=== PATIENT | female | born 1950 | race African-American/Black ===

== ENCOUNTER → 2016-11-27 | Outpatient (CLI) | payer MEDICARE, MEDICAID ==
[~2016-11-27] MED LIST: BARIUM SULFATE 450ML ORAL SUSP ONE; GABAPENTIN; UNKNOWN B/P MED
== END | disposition home or self-care (01) ==
LOC: CT 08:39
PROVIDERS: ATTEND Internal Medicine Gastroenterology
DX: N20.0 Calculus of kidney (principal); D25.9 Leiomyoma of uterus, unspecified; R91.1 Solitary pulmonary nodule; R06.02 Shortness of breath
CPT/HCPCS: 71250; 74176

== ENCOUNTER → 2017-07-01 | Outpatient (CLI) | payer MEDICARE, MEDICAID ==
[~2017-07-01] MED LIST changes: -BARIUM SULFATE 450ML ORAL SUSP ONE; +IOHEXOL-300 100 ML BOTTLE ONE
== END | disposition home or self-care (01) ==
LOC: MRI 11:46
PROVIDERS: ATTEND Internal Medicine Gastroenterology
DX: K85.90 Acute pancreatitis without necrosis or infection, unspecified (principal); R18.8 Other ascites; J47.9 Bronchiectasis, uncomplicated; N20.0 Calculus of kidney
CPT/HCPCS: 71260; 74181; 76376; Q9967

== ENCOUNTER 2018-04-18 03:55 | Inpatient (IN) | payer MEDICARE, MEDICAID ==
[~2018-04-18] VITALS: Ht 154.9 cm; Wt 65.9 kg
[2018-04-18] VITALS (10 sets, daily range): BP systolic 110–162; BP diastolic 61–83
[~2018-04-18 03:55] MED LIST changes: -IOHEXOL-300 100 ML BOTTLE ONE
[2018-04-18 05:58] LABS: HEMATOCRIT. 21.4 % (36.0-48.0); HEMOGLOBIN. 7.1 g/dL (12.0-16.0); MEAN CORPUSCULAR HEMOGLOBIN 37.8 pg (28.0-32.0); MEAN CORPUSCULAR VOLUME 113.8 fL (81.0-99.0); MEAN PLATELET VOLUME 8.5 fl (7.4-10.4); RED BLOOD CELL COUNT 1.88 mill/uL (4.2-5.4); RED CELL DISTRIBUTION WIDTH 19.5 % (11.6-14.6)
[2018-04-18] MEDS ORDERED: DIPHENHYDRAMINE 25MG CAPSULE PO ONE (06:00)
[2018-04-18 06:02] LABS: CHLORIDE 118 mEq/L (98-107)
[2018-04-18 06:03] LABS: PROTHROMBIN TIME 19.5 sec (9.1-11.1)
[2018-04-18] MEDS ORDERED: LORAZEPAM 1MG TABLET PO ONE (07:00)
[2018-04-18 09:23] LABS: NUCLEATED RED BLOOD CELLS 1 /100 WBC; PLATELET ESTIMATE MARKEDLY DECREASED
[2018-04-18 09:25] LABS: PLATELET 42 x1000/uL (130-400)
[2018-04-18] MEDS ORDERED: LORAZEPAM 2MG/ML CPJ IV PRN (10:00)
[2018-04-18] MEDS ORDERED: ONDANSETRON HCL 4MG/2ML INJ IV PRN (10:00)
[2018-04-18] MEDS ORDERED: MAGNESIUM/ALUMINUM HYDROXIDE/SIMETHICONE 30ML UDC PO PRN (10:00)
[2018-04-18] MEDS ORDERED: CLONIDINE 0.1MG TABLET PO PRN (10:00)
[2018-04-18] MEDS ORDERED: GUAIFENESIN 200MG/10ML SUGAR FREE UDC PO PRN (10:00)
[2018-04-18] MEDS ORDERED: DOCUSATE SODIUM 100MG CAPSULE PO PRN (10:00)
[2018-04-18] MEDS ORDERED: IPRATROPIUM/ALBUTEROL 0.5-3(2.5)MG/3ML NEB INH PRN (10:00)
[2018-04-18] MEDS ORDERED: HYDROCODONE/ACETAMINOPHEN 5/325MG TABLET PO PRN (10:00)
[2018-04-18] MEDS ORDERED: DIPHENHYDRAMINE 50MG/ML VIAL IV PRN (10:00)
[2018-04-18] MEDS ORDERED: NA PHOS,M-B/NA PHOS,DI-BA ENEMA 118ML PR PRN (10:00)
[2018-04-18] MEDS ORDERED: ACETAMINOPHEN 325MG TABLET PO PRN (10:00)
[2018-04-18] MEDS ORDERED: MORPHINE SULFATE 4 MG/ML CPJ (NOT FOR IM USE) IV PRN (10:15)
[2018-04-18] MEDS ORDERED: POTASSIUM CHLORIDE 20MEQ TABLET SR PO NR (11:45)
[2018-04-18] MEDS ORDERED: FURO40TA5 PO (13:16)
[2018-04-18] MEDS: CITRIC ACID/SODIUM CITRATE SOLN 30ML UDC PO SCH (18:03)
[2018-04-18 21:49] LABS: HEMATOCRIT 20.8 % (36.0-48.0); HEMOGLOBIN 6.7 g/dL (12.0-16.0)
[2018-04-19] VITALS (12 sets, daily range): BP systolic 119–186; BP diastolic 60–80
[2018-04-19 05:50] LABS: CHLORIDE 121 mEq/L (98-107)
[2018-04-19 05:52] LABS: INR 1.7; PROTHROMBIN TIME 17.1 sec (9.1-11.1)
[2018-04-19 05:59] LABS: LDL CHOLESTEROL 41 mg/dL (5-100)
[2018-04-19 06:00] LABS: HDL CHOLESTEROL 12 mg/dL (40-59)
[2018-04-19 06:12] LABS: BASOPHILS % 0.3 % (0.0-2.0); EOSINOPHILS % 0.8 % (0.0-5.0); HEMATOCRIT. 23.8 % (36.0-48.0); HEMOGLOBIN. 7.4 g/dL (12.0-16.0); MEAN CORPUSCULAR HEMOGLOBIN 38.6 pg (28.0-32.0); MEAN CORPUSCULAR VOLUME 124.4 fL (81.0-99.0); MEAN PLATELET VOLUME 9.1 fl (7.4-10.4); MONOCYTES % 9.8 % (2.0-8.0); NEUTROPHILS % 66.1 % (40.0-76.0); PLATELET 67 x1000/uL (130-400); RED BLOOD CELL COUNT 1.91 mill/uL (4.2-5.4)
[2018-04-19] MEDS: CITRIC ACID/SODIUM CITRATE SOLN 30ML UDC PO SCH (10:16)
[2018-04-19 11:19] LABS: HEMATOCRIT 27.5 % (36.0-48.0)
[2018-04-19 11:22] LABS: INR 1.6; PROTHROMBIN TIME 16.1 sec (9.1-11.1)
[2018-04-19] MEDS: SODIUM BICARBONATE 100 MEQ in DEXTROSE 5% WATER 900 ML IV SCH (11:30)
[2018-04-19] MEDS ORDERED: LIDOCAINE HCL/EPINEPHRINE 1%-EPI 1:100,000 20 ML VIAL ONE (11:59)
[2018-04-19] MEDS ORDERED: SODIUM BICARBONATE 4% (2.4MEQ) 5ML VIAL IV ONE (12:00)
[2018-04-19 14:44] LABS: BG BASE EXCESS -9.1 mmol/L (-2.0-2.0); BG CARBOXYHEMOGLOBIN 0.9 % (0.5-1.5); BG DEOXYHEMOGLOBIN 2.8 % (0.0-5.0); BG FRACTION INSPIRED OXYGEN 21; BG HCO3 ACT 14.2 mmol/L (22.0-26.0); BG METHEMOGLOBIN 0.4 % (0.0-1.5); BG OXYGEN SATURATION 97.2 % (92.0-98.5); BG OXYHEMOGLOBIN 95.9 % (94.0-97.0); BG PCO2 22.8 mmHg (35.0-45.0); BG PH 7.411 (7.350-7.450); BG PO2 100.1 mmHg (75.0-100.0); BG SAMPLE SITE LEFT BRACHIAL; BG VENT MODE ROOM AIR
[2018-04-20] VITALS: BP 168/85
[2018-04-20] MEDS: SODIUM BICARBONATE 100 MEQ in DEXTROSE 5% WATER 900 ML IV SCH (00:20)
[2018-04-20 04:00] VITALS: BP 155/67
[2018-04-20 16:00] VITALS: BP 175/79
[2018-04-20 16:50] VITALS: BP 175/79
== END 2018-04-20 20:20 | disposition home or self-care (01) | DRG 438 ==
LOC: ER 03:55 → 6EST 05:45 → EDBEDREQ 05:48 → ENRESERV 08:22
PROVIDERS: ADMIT Internal Medicine; ATTEND Internal Medicine
PROC: 30233R1 Transfusion of Nonautologous Platelets into Peripheral Vein, Percutaneous Approach (ICD-10-PCS; principal; 2018-04-18)
PROC: 30233N1 Transfusion of Nonautologous Red Blood Cells into Peripheral Vein, Percutaneous Approach (ICD-10-PCS; 2018-04-19)
PROC: 0W9G3ZZ Drainage of Peritoneal Cavity, Percutaneous Approach (ICD-10-PCS; 2018-04-19)
DX: K85.90 Acute pancreatitis without necrosis or infection, unspecified (principal); N17.0 Acute kidney failure with tubular necrosis; R18.8 Other ascites; E87.2 Acidosis; D68.9 Coagulation defect, unspecified; D64.9 Anemia, unspecified; E87.6 Hypokalemia; N18.9 Chronic kidney disease, unspecified; I12.9 Hypertensive chronic kidney disease with stage 1 through stage 4 chronic kidney disease, or unspecified chronic kidney disease; E87.70 Fluid overload, unspecified; D69.6 Thrombocytopenia, unspecified; B19.20 Unspecified viral hepatitis C without hepatic coma; F17.200 Nicotine dependence, unspecified, uncomplicated; Z88.0 Allergy status to penicillin
CPT/HCPCS: 36415; 36430; 36600; 49083; 71045; 73630; 76770; 80048; 80061; 82375; 82805; 83036; 83605; 83735; 83880; 84100; 84484; 85014; 85018; 85049; 85384; 86850; 86900; 86920; 93005; 93970; 96374; 99285; J2060; J2270; J3490; J7040; J7070; P9016; P9034; Q0163

== ENCOUNTER 2018-06-05 08:10 | Inpatient (IN) | payer MEDICARE, MEDICAID ==
[~2018-06-05] VITALS: Ht 162.6 cm; Wt 78.2 kg
[~2018-06-05 08:10] MED LIST changes: +FURO40TA5 PO
[2018-06-05] MEDS ORDERED: DEXTROSE 50% WATER 50ML SYRINGE IV ONE ×2 (08:30→10:15)
[2018-06-05] MEDS ORDERED: SODIUM CHLORIDE 0.9% 1000ML BAG (SEPSIS BOLUS) IV ONE (08:30)
[2018-06-05] MEDS ORDERED: MIDAZOLAM HCL 50 MG in DEXTROSE 5% WATER 40 ML IV ONE ×2 (08:30→13:30)
[2018-06-05] MEDS ORDERED: NALOXONE HCL 0.4 MG/ML 1ML VIAL IV PRN (08:30)
[2018-06-05] MEDS ORDERED: MEROPENEM 1,000 MG in SODIUM CHLORIDE 0.9% 100 ML IV SCH (08:30)
[2018-06-05] MEDS ORDERED: ETOMIDATE 2MG/ML 10ML VIAL IV ONE (08:30)
[2018-06-05 08:46] LABS: BG HCO3 ACT 4.3 mmol/L (22.0-26.0); BG PCO2 25.9 mmHg (35.0-45.0); BG PH 6.837 (7.350-7.450); BG PO2 589.3 mmHg (75.0-100.0); BG SAMPLE SITE RIGHT BRACHIAL; BG TIDAL VOLUME(mL) 500 mL; BG TOTAL HEMOGLOBIN < 4.5 g/dL (12.0-18.0); BG VENT MODE VENT - A/C; BG VENT RATE 14 set
[2018-06-05 08:46] LABS: BASOPHILS % 0.5 % (0.0-2.0); EOSINOPHILS % 0.8 % (0.0-5.0); LYMPHOCYTES % 19.4 % (20.0-50.0); MEAN CORPUSCULAR HEMOGLOBIN 37.8 pg (28.0-32.0); MEAN CORPUSCULAR VOLUME 129.7 fL (81.0-99.0); MONOCYTES % 7.7 % (2.0-8.0); NEUTROPHILS % 71.6 % (40.0-76.0); RED BLOOD CELL COUNT 0.87 mill/uL (4.2-5.4); RED CELL DISTRIBUTION WIDTH 18.2 % (11.6-14.6)
[2018-06-05 08:53] LABS: HEMOGLOBIN. 3.3 g/dL (12.0-16.0)
[2018-06-05 08:55] LABS: HEMATOCRIT. 11.3 % (36.0-48.0); PLATELET 47 x1000/uL (130-400)
[2018-06-05] MEDS ORDERED: SODIUM BICARBONATE 8.4% 1 MEQ/ML 50ML SYR IV ONE ×4 (09:00→13:30)
[2018-06-05 09:05] LABS: ETHANOL BLOOD < 10 mg/dL
[2018-06-05 09:11] LABS: PLATELET ESTIMATE MARKEDLY DECREASED
[2018-06-05 09:16] LABS: CHLORIDE 112 mEq/L (98-107)
[2018-06-05 09:28] LABS: PROTHROMBIN TIME 41.6 sec (9.1-11.1)
[2018-06-05 09:53] LABS: INR 4.2
[2018-06-05] MEDS ORDERED: SODIUM BICARBONATE 8.4% 1 MEQ/ML 50ML SYR IV NR (10:00)
[2018-06-05] MEDS ORDERED: DEXT 5%/0.45% NACL 1000ML 1,000 ML IV SCH (10:01)
[2018-06-05 10:02] LABS: CREATINE KINASE 687 IU/L (26-192)
[2018-06-05] MEDS ORDERED: OCTREOTIDE 1,000 MCG in SODIUM CHLORIDE 0.9% 100 ML IV ONE (10:15)
[2018-06-05] MEDS ORDERED: VECURONIUM BROMIDE 10 MG/VIAL IV ONE (10:15)
[2018-06-05] MEDS ORDERED: SUCCINYLCHOLINE CHLORIDE 200MG/10ML IV ONE (10:15)
[2018-06-05] MEDS ORDERED: IPRATROPIUM/ALBUTEROL 0.5-3(2.5)MG/3ML NEB INH PRN (10:15)
[2018-06-05] MEDS ORDERED: ONDANSETRON HCL 4MG/2ML INJ IV PRN (10:15)
[2018-06-05] MEDS ORDERED: LEVOFLOXACIN 500MG PREMIX 100 ML IV SCH (10:15)
[2018-06-05] MEDS: IPRATROPIUM/ALBUTEROL 0.5-3(2.5)MG/3ML NEB HHN SCH ×3 (10:15→20:55)
[2018-06-05] MEDS ORDERED: PANTOPRAZOLE 80 MG in SODIUM CHLORIDE 0.9% 100 ML IV SCH (10:15)
[2018-06-05] MEDS ORDERED: ACETAMINOPHEN 650MG SUPP PR PRN (10:15)
[2018-06-05] MEDS ORDERED: OCTREOTIDE ACETATE 50 MCG/ML 1ML IV NR (10:30)
[2018-06-05] MEDS ORDERED: METRONIDAZOLE 500 MG PREMIX 100 ML IV NR (11:30)
[2018-06-05] MEDS ORDERED: OCTREOTIDE 1,000 MCG in SODIUM CHLORIDE 0.9% 98 ML IV SCH (11:30)
[2018-06-05] MEDS ORDERED: LEVOFLOXACIN 500MG PREMIX 100 ML IV NR (11:30)
[2018-06-05 11:31] LABS: CLARITY URINE CLOUDY (CLEAR); COLOR URINE DARK YELLOW (YELLOW); KETONES URINE NEGATIVE (NEGATIVE); LEUKOCYTE ESTERASE URINE NEGATIVE (NEGATIVE); NITRITE URINE NEGATIVE (NEGATIVE); OCCULT BLOOD URINE 3+ (NEGATIVE); PROTEIN URINE 1+ (NEGATIVE); SPECIFIC GRAVITY URINE 1.013 (1.005-1.030)
[2018-06-05] MEDS ORDERED: NOREPINEPHRINE 32 MG in DEXT 5% WATER 468 ML IV PRN ×2 (11:45→13:15)
[2018-06-05] MEDS ORDERED: SODIUM BICARBONATE 150 MEQ in SODIUM CHLORIDE 0.45% 1,000 ML IV SCH (12:00)
[2018-06-05] MEDS ORDERED: PHYTONADIONE 10 MG in DEXTROSE 5% WATER 50 ML IV NR (12:00)
[2018-06-05] MEDS: OCTREOTIDE 1,000 MCG in SODIUM CHLORIDE 0.9% 98 ML IV SCH (12:00)
[2018-06-05] MEDS ORDERED: VANCOMYCIN 1250MG in DEXTROSE 5% WATER 250ML IV SCH (12:00)
[2018-06-05 12:33] LABS: BG BASE EXCESS -23.9 mmol/L (-2.0-2.0); BG CARBOXYHEMOGLOBIN 0.6 % (0.5-1.5); BG DEOXYHEMOGLOBIN 4.3 % (0.0-5.0); BG FRACTION INSPIRED OXYGEN 40; BG HCO3 ACT 4.6 mmol/L (22.0-26.0); BG METHEMOGLOBIN 0.3 % (0.0-1.5); BG OXYGEN SATURATION 95.7 % (92.0-98.5); BG OXYHEMOGLOBIN 94.8 % (94.0-97.0); BG PCO2 16.9 mmHg (35.0-45.0); BG PH 7.056 (7.350-7.450); BG SAMPLE SITE RIGHT BRACHIAL; BG TIDAL VOLUME(mL) 500 mL; BG VENT MODE VENT - A/C; BG VENT RATE 26 set
[2018-06-05 12:53] LABS: *BENZODIAZEPINES SCREEN URINE NEGATIVE (NEGATIVE); *COCAINE SCREEN URINE NEGATIVE (NEGATIVE); METHADONE URINE SCREEN NEGATIVE (NEGATIVE); OPIATES URINE SCREEN NEGATIVE (NEGATIVE)
[2018-06-05 12:54] LABS: *AMPHETAMINES SCREEN URINE NEGATIVE (NEGATIVE); *BARBITURATES SCREEN URINE NEGATIVE (NEGATIVE); CANNABINOID URINE SCREEN NEGATIVE (NEGATIVE); PHENCYCLIDINE URINE SCREEN NEGATIVE (NEGATIVE)
[2018-06-05 12:59] LABS: BASOPHILS % 0.9 % (0.0-2.0); EOSINOPHILS % 0.9 % (0.0-5.0); HEMATOCRIT. 25.9 % (36.0-48.0); HEMOGLOBIN. 8.7 g/dL (12.0-16.0); MEAN CORPUSCULAR HEMOGLOBIN 30.7 pg (28.0-32.0); MEAN CORPUSCULAR VOLUME 91.5 fL (81.0-99.0); MEAN PLATELET VOLUME 7.8 fl (7.4-10.4); MONOCYTES % 8.3 % (2.0-8.0); NEUTROPHILS % 56.9 % (40.0-76.0); RED BLOOD CELL COUNT 2.83 mill/uL (4.2-5.4); RED CELL DISTRIBUTION WIDTH 14.4 % (11.6-14.6)
[2018-06-05 13:05] LABS: CHLORIDE 110 mEq/L (98-107)
[2018-06-05] MEDS ORDERED: HEPARIN 1000 UNITS/ML 10ML ONE (13:16)
[2018-06-05] MEDS ORDERED: LIDOCAINE HCL 1% 20ML VIAL (Pyxis) INJ ONE (13:16)
[2018-06-05] MEDS ORDERED: SODIUM BICARBONATE 4% (2.4MEQ) 5ML VIAL IV ONE (13:16)
[2018-06-05 13:18] LABS: D-DIMER 16.77 mg/L FEU (<0.50)
[2018-06-05 13:27] LABS: PLATELET 14 x1000/uL (130-400)
[2018-06-05] MEDS: PANTOPRAZOLE SODIUM 40 MG/VIAL IV SCH (13:45)
[2018-06-05] MEDS ORDERED: METRONIDAZOLE 500 MG PREMIX 100 ML IV SCH (14:00)
[2018-06-05 19:05] LABS: HEMATOCRIT 30.1 % (36.0-48.0); HEMOGLOBIN 9.7 g/dL (12.0-16.0)
[2018-06-06] VITALS (104 sets, daily range): BP systolic 45–151; BP diastolic 26–99
[2018-06-06] MEDS: IPRATROPIUM/ALBUTEROL 0.5-3(2.5)MG/3ML NEB HHN SCH ×6 (00:52→21:12)
[2018-06-06] MEDS ORDERED: NOREPINEPHRINE 32 MG in DEXT 5% WATER 468 ML IV PRN ×2 (01:00→18:15)
[2018-06-06] MEDS: PANTOPRAZOLE SODIUM 40 MG/VIAL IV SCH ×3 (01:26→21:22)
[2018-06-06] MEDS: SODIUM BICARBONATE 150 MEQ in DEXTROSE 5% WATER 1,000 ML IV SCH ×2 (01:26→16:52)
[2018-06-06] MEDS: METRONIDAZOLE 500 MG PREMIX 100 ML IV SCH ×3 (02:10→16:57)
[2018-06-06 02:26] LABS: BG BASE EXCESS -19.8 mmol/L (-2.0-2.0); BG CARBOXYHEMOGLOBIN 0.6 % (0.5-1.5); BG DEOXYHEMOGLOBIN 6.6 % (0.0-5.0); BG FRACTION INSPIRED OXYGEN 40; BG HCO3 ACT 6.6 mmol/L (22.0-26.0); BG OXYGEN SATURATION 93.3 % (92.0-98.5); BG OXYHEMOGLOBIN 91.8 % (94.0-97.0); BG PCO2 17.7 mmHg (35.0-45.0); BG PH 7.189 (7.350-7.450); BG PO2 90.4 mmHg (75.0-100.0); BG SAMPLE SITE RIGHT BRACHIAL; BG TIDAL VOLUME(mL) 500 mL; BG TOTAL HEMOGLOBIN 5.3 g/dL (12.0-18.0); BG VENT MODE VENT - A/C; BG VENT RATE 30 set
[2018-06-06] MEDS ORDERED: SODIUM BICARBONATE 8.4% 1 MEQ/ML 50ML SYR IV SCH (04:00)
[2018-06-06 04:10] LABS: HEMATOCRIT 16.2 % (36.0-48.0); HEMOGLOBIN 5.2 g/dL (12.0-16.0)
[2018-06-06] MEDS: PHENYLEPHRINE 40 MG in DEXT 5% WATER 246 ML IV PRN ×2 (06:31→21:06)
[2018-06-06] MEDS: VASOPRESSIN 10 UNIT in SODIUM CHLORIDE 0.9% 99.5 ML IV PRN ×3 (06:34→16:51)
[2018-06-06 09:19] LABS: BG BASE EXCESS -21.2 mmol/L (-2.0-2.0); BG CARBOXYHEMOGLOBIN 0.9 % (0.5-1.5); BG DEOXYHEMOGLOBIN 3.5 % (0.0-5.0); BG FRACTION INSPIRED OXYGEN 80; BG METHEMOGLOBIN 0.5 % (0.0-1.5); BG OXYGEN SATURATION 96.5 % (92.0-98.5); BG OXYHEMOGLOBIN 95.1 % (94.0-97.0); BG PCO2 24.1 mmHg (35.0-45.0); BG PH 7.079 (7.350-7.450); BG PO2 119.7 mmHg (75.0-100.0); BG SAMPLE SITE RIGHT BRACHIAL; BG TIDAL VOLUME(mL) 500 mL; BG TOTAL HEMOGLOBIN 7.3 g/dL (12.0-18.0); BG VENT MODE VENT - A/C; BG VENT RATE 26 set
[2018-06-06 09:52] LABS: CHLORIDE 107 mEq/L (98-107)
[2018-06-06] MEDS ORDERED: OCTREOTIDE 1,000 MCG in SODIUM CHLORIDE 0.9% 98 ML IV SCH (10:00)
[2018-06-06 10:27] LABS: MEAN PLATELET VOLUME 7.6 fl (7.4-10.4); PLATELET 195 x1000/uL (130-400); RED BLOOD CELL COUNT 2.22 mill/uL (4.2-5.4); RED CELL DISTRIBUTION WIDTH 14.9 % (11.6-14.6)
[2018-06-06 10:29] LABS: PHOSPHORUS 8.9 mg/dL (2.5-4.9)
[2018-06-06 11:03] LABS: HEMOGLOBIN. 6.9 g/dL (12.0-16.0)
[2018-06-06] MEDS ORDERED: SODIUM BICARBONATE 8.4% 1 MEQ/ML 50ML SYR IV NR (11:30)
[2018-06-06 14:37] LABS: HEMATOCRIT 25.8 % (36.0-48.0); HEMOGLOBIN 8.5 g/dL (12.0-16.0)
[2018-06-06 15:19] LABS: NUCLEATED RED BLOOD CELLS 12 /100 WBC; PLATELET ESTIMATE NORMAL
[2018-06-06 20:49] LABS: HEMATOCRIT 25.3 % (36.0-48.0); HEMOGLOBIN 8.2 g/dL (12.0-16.0)
[2018-06-07] VITALS (45 sets, daily range): BP systolic 88–112; BP diastolic 37–81
[2018-06-07] MEDS: OCTREOTIDE 1,000 MCG in SODIUM CHLORIDE 0.9% 98 ML IV SCH (00:08)
[2018-06-07] MEDS: METRONIDAZOLE 500 MG PREMIX 100 ML IV SCH ×2 (00:48→09:25)
[2018-06-07] MEDS: VASOPRESSIN 10 UNIT in SODIUM CHLORIDE 0.9% 99.5 ML IV PRN ×3 (00:50→13:24)
[2018-06-07] MEDS: IPRATROPIUM/ALBUTEROL 0.5-3(2.5)MG/3ML NEB HHN SCH ×4 (01:21→11:56)
[2018-06-07] MEDS: SODIUM BICARBONATE 150 MEQ in DEXTROSE 5% WATER 1,000 ML IV SCH (03:42)
[2018-06-07 05:16] LABS: HEMATOCRIT. 30.2 % (36.0-48.0); HEMOGLOBIN. 8.8 g/dL (12.0-16.0); MEAN CORPUSCULAR HEMOGLOBIN 30.8 pg (28.0-32.0); MEAN CORPUSCULAR VOLUME 105.8 fL (81.0-99.0); MEAN PLATELET VOLUME 8.9 fl (7.4-10.4); PLATELET 96 x1000/uL (130-400); RED BLOOD CELL COUNT 2.85 mill/uL (4.2-5.4)
[2018-06-07 05:53] LABS: PHOSPHORUS 11.4 mg/dL (2.5-4.9)
[2018-06-07 07:14] LABS: NUCLEATED RED BLOOD CELLS 13 /100 WBC
[2018-06-07 07:17] LABS: PLATELET ESTIMATE DECREASED
[2018-06-07 08:59] LABS: BG BASE EXCESS -22.4 mmol/L (-2.0-2.0); BG CARBOXYHEMOGLOBIN 0.6 % (0.5-1.5); BG DEOXYHEMOGLOBIN 22.8 % (0.0-5.0); BG FRACTION INSPIRED OXYGEN 100; BG HCO3 ACT 7.9 mmol/L (22.0-26.0); BG METHEMOGLOBIN 0.4 % (0.0-1.5); BG OXYHEMOGLOBIN 76.2 % (94.0-97.0); BG PCO2 35.4 mmHg (35.0-45.0); BG PH 6.964 (7.350-7.450); BG PO2 52.9 mmHg (75.0-100.0); BG SAMPLE SITE RIGHT BRACHIAL; BG TIDAL VOLUME(mL) 500 mL; BG TOTAL HEMOGLOBIN 7.5 g/dL (12.0-18.0); BG VENT MODE VENT - A/C; BG VENT RATE 26 set
[2018-06-07] MEDS: PANTOPRAZOLE SODIUM 40 MG/VIAL IV SCH (09:24)
[2018-06-07] MEDS ORDERED: LEVOFLOXACIN 250MG PREMIX 50 ML IV SCH (12:00)
[2018-06-07] MEDS ORDERED: VANCOMYCIN 1 G PREMIX 200 ML IV NR (12:00)
[2018-06-07] MEDS ORDERED: PETROLATUM,WHITE OPHTH OINT 3.5GM BOTHEYE SCH (14:00)
[2018-06-07] MEDS ORDERED: LACTULOSE 20G/30ML UDC PO SCH (16:00)
== END 2018-06-07 14:28 | disposition expired | DRG 871 ==
LOC: ER 08:10 → CVICU 08:30 → EDBEDREQ 08:31 → SUPCPDRO 09:59 → ENRESERV 23:10
PROVIDERS: ADMIT Internal Medicine; ATTEND Internal Medicine
PROC: 30233K1 Transfusion of Nonautologous Frozen Plasma into Peripheral Vein, Percutaneous Approach (ICD-10-PCS; principal; 2018-06-05)
PROC: 30233N1 Transfusion of Nonautologous Red Blood Cells into Peripheral Vein, Percutaneous Approach (ICD-10-PCS; 2018-06-05)
PROC: 30233R1 Transfusion of Nonautologous Platelets into Peripheral Vein, Percutaneous Approach (ICD-10-PCS; 2018-06-05)
PROC: 0BH17EZ Insertion of Endotracheal Airway into Trachea, Via Natural or Artificial Opening (ICD-10-PCS; 2018-06-05)
PROC: 5A1945Z Respiratory Ventilation, 24-96 Consecutive Hours (ICD-10-PCS; 2018-06-05)
PROC: 05HY33Z Insertion of Infusion Device into Upper Vein, Percutaneous Approach (ICD-10-PCS; 2018-06-05)
DX: A41.9 Sepsis, unspecified organism (principal); E43 Unspecified severe protein-calorie malnutrition; G93.41 Metabolic encephalopathy; J96.00 Acute respiratory failure, unspecified whether with hypoxia or hypercapnia; K72.00 Acute and subacute hepatic failure without coma; R65.21 Severe sepsis with septic shock; N17.0 Acute kidney failure with tubular necrosis; I85.11 Secondary esophageal varices with bleeding; J69.0 Pneumonitis due to inhalation of food and vomit; D61.818 Other pancytopenia; D62 Acute posthemorrhagic anemia; D68.4 Acquired coagulation factor deficiency; E87.2 Acidosis; M62.82 Rhabdomyolysis; R18.8 Other ascites; K92.2 Gastrointestinal hemorrhage, unspecified; B18.2 Chronic viral hepatitis C; D53.9 Nutritional anemia, unspecified; E87.5 Hyperkalemia; I12.9 Hypertensive chronic kidney disease with stage 1 through stage 4 chronic kidney disease, or unspecified chronic kidney disease; K74.60 Unspecified cirrhosis of liver; R57.8 Other shock; N18.9 Chronic kidney disease, unspecified; K75.89 Other specified inflammatory liver diseases; Z66 Do not resuscitate; K74.69 Other cirrhosis of liver; K72.90 Hepatic failure, unspecified without coma; Z82.49 Family history of ischemic heart disease and other diseases of the circulatory system; Z88.9 Allergy status to unspecified drugs, medicaments and biological substances; H57.04 Mydriasis; Z68.29 Body mass index [BMI] 29.0-29.9, adult
CPT/HCPCS: 31500; 36415; 36556; 36600; 71045; 76937; 80048; 80202; 80305; 80307; 80320; 80329; 82140; 82375; 82550; 82805; 82962; 83036; 83605; 83735; 83880; 84100; 84443; 84484; 85014; 85018; 85362; 85379; 85384; 86850; 86900; 86920; 86927; 86945; 87076; 93306; 93970; 94002; 94003; 94640; 96365; 96366; 96375; 99291; C1752; C9113; J1644; J1956; J2185; J2250; J2354; J2370; J2405; J3370; J3430; J3490; J7030; J7040; J7050; J7060; J7070; J7620; P9016; P9017; P9034; A4315; G0480